=== PATIENT | male | born 1975 | race Caucasian/White ===

== ENCOUNTER 2018-07-01 12:23 | Emergency (ER) | payer OTHER ==
[2018-07-01] MEDS ORDERED: NS 0.9% 500 ML* 500 ML IV ONE (12:38)
--- NOTE | 2018-07-01 12:54 | UC ---
Respiratory Complaint HPI - HPI Summary HPI Summary: 43-year-old male presents with onset of productive cough 3 days ago. States has progressively worsened over the last 3 days and has developed increased shortness of breath. History of asthma. States been using his rescue inhaler several times including throughout the night last night. He has had some cold sweats and shaking chills but no known fever. Also reports onset of some mild nausea today. States that earlier today he was outside and began to feel numb all over went indoors and laid down. He had opened used the bathroom to have a bowel movement and had a syncopal episode. Unsure of how long he was unconscious. Denies any head or neck pain. States mother has history of heart problems and diabetes but is unsure of details as he grew up in foster care. Patient is complaining of lightheadedness and faintness at time of exam. Denies chest pain, palpitations, abdominal pain, vomiting, or diarrhea. - History of Current Complaint Stated Complaint: RESP COMPLAINT Time Seen by Provider: 07/01/18 12:25 Hx Obtained From: Patient Onset/Duration: Gradual Onset, Lasting Days - 3 Character: Cough: Productive - White sputum Aggravating Factors: Nothing Alleviating Factors: Nothing Associated Signs And Symptoms: Positive: Dyspnea, Chills, Dizziness, Nasal Congestion. Negative: Fever, Pleuritic Chest Pain, Wheezing, Hemoptysis, Calf Pain, Calf Swelling, Edema, Sinus Discomfort - Allergies/Home Medications Allergies/Adverse Reactions: Allergies Allergy/AdvReac Type Severity Reaction Status Date / Time No Known Allergies Allergy Verified 07/01/18 12:36 Home Medications: Home Medications Albuterol Sulfate [Proventil Hfa] 1 puff PO PRN 07/01/18 [History] PMH/Surg Hx/FS Hx/Imm Hx Previously Healthy: Yes Respiratory History: Asthma - Surgical History Surgical History: None - Family History Known Family History: Positive: Cardiac Disease, Diabetes - Social History Occupation: Unemployed Lives: Alone Alcohol Use: Weekly Alcohol Amount: six pack of beer Substance Use Type: None Smoking Status (MU): Smoker, Current Status Unknown Household Exposure Type: Cigarettes Review of Systems All Other Systems Reviewed And Are Negative: Yes Constitutional: Positive: Chills. Negative: Fever Skin: Negative: Rash Respiratory: Positive: Shortness Of Breath, Cough Cardiovascular: Negative: Palpitations, Chest Pain Gastrointestinal: Positive: Nausea. Negative: Abdominal Pain, Vomiting, Diarrhea Is Patient Immunocompromised?: No Physical Exam Triage Information Reviewed: Yes Appearance: No Pain Distress, Ill-Appearing Vital Signs Reviewed: Yes Eyes: Positive: Conjunctiva Clear. Negative: Discharge ENT: Positive: Nasal congestion, Uvula midline. Negative: Pharyngeal erythema, Nasal drainage, Tonsillar swelling, Tonsillar exudate Neck: Positive: Supple, Nontender, No Lymphadenopathy Respiratory: Positive: Chest non-tender, No respiratory distress, Decreased breath sounds - Left lower lobe. Negative: Accessory muscle use, Crackles, Rhonchi, Wheezing Cardiovascular: Positive: RRR, No Murmur, Pulses Normal, Brisk Capillary Refill Abdomen Description: Positive: Nontender, No Organomegaly, Soft. Negative: Distended, Guarding Bowel Sounds: Positive: Present Neurological: Positive: Alert, Muscle Tone Normal, Fatigued Skin: Positive: Other - Pale, cool, and clammy UC Diagnostic Evaluation - EKG Cardiac Rate: Tachycardia Cardiac Rhythm: Sinus: Normal Ectopy: None ST Segment: Normal Respiratory Course/Dx - Course Course Of Treatment: 43 year old male with 3 day history of progressively worsening productive cough associated with cold sweats and shaking chills. States today was walking outside and became numb all over. Laid down for awhile and then went to bathroom and had a syncopal episode. He was hypothermic with initial temperature. Normotensive but tachycardic. Pale, cool, and clammy. Diminished left lower base without wheezes, crackles, or rhonchi. EKG sinus tachycardia. IV line established and 500 ml NS bolus was given. Suspect possible pneumonia with vasovagal episode however recommending further evaluation in emergency room at this time. Discussed case with Dr. Palomino at [facility]. Transferred via [facility]. - Differential Dx/Diagnosis Differential Diagnosis/HQI/PQRI: Asthma, Bronchitis, Influenza, Lower Resp Infection, Pulmonary Embolism, Other - Syncope, TN Provider Diagnoses: Syncope - Physician Notification/Consults Discussed Patient Care With: Jj Palomino Time Discussed With Above Provider: 13:00 Instructed by Provider To: MD Will See In ED Discharge - Sign-Out/Discharge Documenting (check all that apply): Patient Departure All imaging exams completed and their final reports reviewed: No Studies - Discharge Plan Condition: Stable Disposition: TRANS [facility] Patient Education Materials: Syncope (ED) Referrals: No Primary Care Phys,NOPCP [Primary Care Provider] - Additional Instructions: Based on your history and exam it is recommended that you be evaluated in the emergency room at this time. We will transfer you via ambulance. - Billing Disposition and Condition Condition: STABLE Disposition: Trans Higher Lvl of Care Fac
[2018-07-01 13:01] VITALS: BP 92/49
== END 2018-07-01 13:13 | disposition short-term general hospital (02) ==
LOC: UCEAST 12:23
DX: R55 Syncope and collapse (principal); R05 Cough; R68.83 Chills (without fever); R06.02 Shortness of breath; R20.0 Anesthesia of skin; R42 Dizziness and giddiness; R11.0 Nausea; J45.909 Unspecified asthma, uncomplicated; F17.200 Nicotine dependence, unspecified, uncomplicated
CPT/HCPCS: 96360; 99213; G0463

== ENCOUNTER 2019-06-29 14:50 | Emergency (ER) | payer OTHER ==
[2019-06-29 15:03] VITALS: BP 134/72
--- NOTE | 2019-06-29 15:19 | UC ---
Respiratory Complaint HPI - HPI Summary HPI Summary: 2 days of sore throat, pain with swallowing, cough, headache, diffuse body aches. No fever, nausea/vomiting. - History of Current Complaint Chief Complaint: UCRespiratory Stated Complaint: COUGH AND SINUS CONGESTION Time Seen by Provider: 06/29/19 15:08 Hx Obtained From: Patient Onset/Duration: Gradual Onset, Lasting Days, Still Present Timing: Constant Severity Initially: Moderate Severity Currently: Moderate Pain Intensity: 10 Pain Scale Used: 0-10 Numeric Character: Cough: Nonproductive Aggravating Factors: Nothing Alleviating Factors: Nothing Associated Signs And Symptoms: Positive: Chills, URI, Nasal Congestion. Negative: Dyspnea, Fever - Allergies/Home Medications Allergies/Adverse Reactions: Allergies Allergy/AdvReac Type Severity Reaction Status Date / Time No Known Allergies Allergy Verified 06/29/19 15:03 Home Medications: Home Medications Sertraline* [Zoloft*] 25 mg PO DAILY 06/29/19 [History Confirmed 06/29/19] PMH/Surg Hx/FS Hx/Imm Hx Respiratory History: Asthma - Surgical History Surgical History: None Surgery Procedure, Year, and Place: None reported - Family History Known Family History: Positive: Cardiac Disease, Hypertension - Mother , Diabetes - Social History Alcohol Use: None Alcohol Amount: recovering alcoholic Substance Use Type: None Smoking Status (MU): Current Every Day Smoker Type: Cigarettes Amount Used/How Often: 1 ppd Household Exposure Type: Cigarettes Review of Systems All Other Systems Reviewed And Are Negative: Yes Constitutional: Positive: Chills, Fatigue ENT: Positive: Sore Throat, Nasal Discharge Respiratory: Positive: Cough Cardiovascular: Positive: Negative Gastrointestinal: Positive: Negative Musculoskeletal: Positive: Arthralgia, Myalgia Neurological: Positive: Headache Physical Exam Triage Information Reviewed: Yes Appearance: No Pain Distress, Well-Nourished, Ill-Appearing - SEEMS FATIGUED Vital Signs: Initial Vital Signs Temp 98.7 F 06/29/19 14:57 Pulse 106 06/29/19 14:57 Resp 18 06/29/19 14:57 BP 134/72 06/29/19 14:57 Pulse Ox 97 06/29/19 14:57 Laboratory Tests 06/29/19 15:27 Influenza A (Rapid) Negative Influenza B (Rapid) Negative Vital Signs Reviewed: Yes Eyes: Positive: Conjunctiva Clear ENT: Positive: Hearing grossly normal, Pharyngeal erythema, Other - LEFT TM DULL , ERYTHEMATOUS. RIGHT TM NORMAL. Negative: Tonsillar exudate Neck: Positive: Supple, Nontender, No Lymphadenopathy Respiratory Exam: Normal Cardiovascular: Positive: Tachycardia Abdomen Description: Positive: Soft Musculoskeletal: Positive: No Edema Neurological: Positive: Alert Psychological: Positive: Age Appropriate Behavior Skin: Negative: Rashes Respiratory Course/Dx - Course Course Of Treatment: LIKELY VIRAL URI HOWEVER PATIENT DOES HAVE A LEFT-SIDED OTITIS MEDIA SO WILL COVER FOR THAT WITH AMOXICILLIN TWICE DAILY FOR 10 DAYS. PREDNISONE AND TESSALON FOR COUGH. HE ALREADY HAS ALBUTEROL AT HOME. FOLLOW-UP IF NOT IMPROVING WITH THIS TREATMENT. - Differential Dx/Diagnosis Provider Diagnosis: Otitis media of left ear, Upper respiratory infection Discharge ED - Sign-Out/Discharge Documenting (check all that apply): Patient Departure All imaging exams completed and their final reports reviewed: No Studies - Discharge Plan Condition: Stable Disposition: HOME Prescriptions: Amoxicillin PO (*) [Amoxicillin 500 MG CAP*] 1,000 mg PO Q12H #40 cap Benzonatate CAP* [Tessalon CAP*] 1 - 2 cap PO TID PRN #30 cap PRN Reason: Cough predniSONE TAB* [Deltasone TAB*] 50 mg PO DAILY #5 tab Patient Education Materials: Ear Infection (ED), Upper Respiratory Infection ( ED) Referrals: Nely Schroeder MD [Primary Care Provider] - If Needed Additional Instructions: YOUR RESPIRATORY SYMPTOMS ARE LIKELY VIRALLY MEDIATED AND SHOULD RESOLVE ON THEIR OWN WITH TIME HOWEVER YOU DO HAVE A LEFT-SIDED EAR INFECTION SO WE WILL GIVE YOU ANTIBIOTICS TO COVER FOR THAT. TAKE TWICE DAILY FOR THE FULL 10 DAYS. WILL TREAT WITH PREDNISONE TO HELP WITH AIRWAY INFLAMMATION AND COUGH MEDICINE. USE YOUR ALBUTEROL NEEDED. SEEK FOLLOW-UP IF YOU ARE NOT IMPROVING OVER THE NEXT 1-2 WEEKS. FLU SWAB NEGATIVE. - Billing Disposition and Condition Condition: STABLE Disposition: Home
[2019-06-29 15:39] LABS: Influenza A Molecular NEGATIVE (Negative); Influenza B Molecular NEGATIVE (Negative)
== END 2019-06-29 15:55 | disposition home or self-care (01) ==
LOC: UCEAST 14:50
DX: J06.9 Acute upper respiratory infection, unspecified (principal); H66.92 Otitis media, unspecified, left ear; J45.909 Unspecified asthma, uncomplicated; R51 Headache; M79.10 Myalgia, unspecified site; R53.83 Other fatigue; F17.210 Nicotine dependence, cigarettes, uncomplicated
CPT/HCPCS: 99212; G0463

== ENCOUNTER 2019-09-23 07:55 | Emergency (ER) | payer OTHER ==
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
[2019-09-23 08:52] LABS: Influenza A Molecular Negative (Negative); Influenza B Molecular Negative (Negative)
[2019-09-23 09:07] LABS: ABS Basophils 0.1 10^3/ul (0-0.2); ABS Eosinophils 0.1 10^3/ul (0-0.6); ABS Lymphocytes 1.5 10^3/ul (1.0-4.8); ABS Monocytes 0.7 10^3/ul (0-0.8); ABS Neutrophils 4.5 10^3/ul (1.5-7.7); Eosinophil % 1.2 %; Hematocrit 45 % (42-52); Hemoglobin 15.6 g/dL (14.0-18.0); Lymphocyte % 21.8 %; Mean Corpuscular HGB Conc 35 g/dL (31-36); Mean Corpuscular Hemoglobin 30 pg (27-31); Mean Corpuscular Volume 88 fL (80-94); Mean Platelet Volume 8.6 fL (7.4-10.4); Nucleated Red Blood Cells % 0.1; Platelet Count 297 10^3/uL (150-450); Red Blood Count 5.13 10^6 /uL (4.18-5.48); Red Cell Distribution Width 15 % (10-15); White Blood Count 6.9 10^3/uL (3.5-10.8)
[2019-09-23 09:25] LABS: Albumin 4.6 g/dL (3.2-5.2); Albumin/Globulin Ratio 1.6 (1-3); BUN/Creatinine Ratio 21.4 (8-20); C Reactive Protein 9.42 mg/L (<8.01); Calcium 9.3 mg/dL (8.6-10.3); EGFR African American 148.2 (>60); EGFR Non-African American 122.5 (>60); Globulin 2.9 g/dL (2-4); Total Bilirubin 0.9 mg/dL (0.2-1.0); Total Protein 7.5 g/dL (6.4-8.9)
[2019-09-23 09:55] LABS: HIV 4th Generation Nonreactive (Nonreactive)
[2019-09-23 12:34] VITALS: BP 124/74
== END 2019-09-23 11:00 | disposition home or self-care (01) ==
LOC: ED 07:55
DX: J40 Bronchitis, not specified as acute or chronic (principal); R10.9 Unspecified abdominal pain; M54.5 Low back pain; F17.210 Nicotine dependence, cigarettes, uncomplicated; R09.81 Nasal congestion; R07.81 Pleurodynia; Z79.899 Other long term (current) drug therapy
CPT/HCPCS: 36415; 71046; 80053; 84484; 85025; 86140; 87389; 93005; 99283

== ENCOUNTER 2019-09-27 09:25 | Emergency (ER) | payer OTHER ==
[~2019-09-27 09:25] MED LIST: Lidocaine PATCH 5%* 1 PATCH TRANSDERM SCH
[2019-09-27] MEDS ORDERED: oxyCODONE/Acetamin 5/325 MG* TAB PO ONE (10:06)
--- NOTE | 2019-09-27 10:11 | ED ---
HPI Chest Pain - HPI Summary HPI Summary: The patient is a 44 y/o M presenting to [facility] accompanied by with a cc of worsening left lateral rib pain since this morning. He reports that he was here yesterday and was diagnosed with bronchitis, as he has been suffering from a productive cough. Today, his symptoms worsened when he was excessively coughing and felt a snap in the lateral left ribs. The aching pain is rated 10/10 in severity, and is aggravated with deep breathing, movement, and coughing. No alleviating symptoms. He denies any fevers, SOB, or abdominal pain. PMHx: asthma , anxiety, depression, chronic back pain. Heavy current smoker, no EtOH, no substance use. Medications reviewed. Allergies noted. - History of Current Complaint Chief Complaint: EDChestWallPain Time Seen by Provider: 09/27/19 09:55 Hx Obtained From: Patient Onset/Duration: Started Hours Ago, Still Present Timing: Constant Initial Severity: Severe Current Severity: Severe Pain Intensity: 10 Pain Scale Used: 0-10 Numeric Chest Pain Location: Left Lateral Chest Pain Radiates: No Character: Dull/Aching Aggravating Factor(s): Movement, Deep Breaths, Other: - cough Alleviating Factor(s): Nothing Associated Signs and Symptoms: Positive: Productive Cough, Other: - left lateral rib pain. Negative: Shortness of Breath, Fever, Abdominal Pain - Allergy/Home Medications Allergies/Adverse Reactions: Allergies Allergy/AdvReac Type Severity Reaction Status Date / Time No Known Allergies Allergy Verified 09/23/19 08:06 PMH/Surg Hx/FS Hx/Imm Hx Endocrine/Hematology History: Denies: Hx Diabetes Cardiovascular History: Denies: Hx Hypertension Respiratory History: Reports: Hx Asthma Musculoskeletal History: Reports: Hx Back Problems Sensory History: Denies: Hx Legally Blind, Hx Deafness Opthamlomology History: Denies: Hx Legally Blind Psychiatric History: Denies: Hx Anxiety, Hx Depression - Cancer History Cancer Type, Location and Year: none - Surgical History Surgical History: None Surgery Procedure, Year, and Place: None reported - Immunization History Date of Tetanus Vaccine: 2016 Infectious Disease History: No Infectious Disease History: Denies: Traveled Outside the [place] in Last 30 Days - Family History Known Family History: Positive: Cardiac Disease, Hypertension - Mother , Diabetes - Social History Alcohol Use: None Alcohol Amount: recovering alcoholic Hx Substance Use: No Substance Use Type: Reports: None Hx Tobacco Use: Yes Smoking Status (MU): Heavy Every Day Tobacco Smoker Type: Cigarettes Amount Used/How Often: 1 ppd Review of Systems Negative: Fever Positive: Chest Pain - left lateral Positive: Cough - pro. Negative: Shortness Of Breath Negative: Abdominal Pain All Other Systems Reviewed And Are Negative: Yes Physical Exam - Summary Physical Exam Summary: Constitutional: Well-developed, Well-nourished, Alert. (+) Mild distress Skin: Warm, Dry HENT: Normocephalic; Atraumatic Eyes: Conjunctiva normal Neck: Musculoskeletal ROM normal neck. (-) JVD, (-) Stridor, (-) Nuchal rigidity Cardio: Rhythm regular, rate normal, Heart sounds normal; Intact distal pulses; Radial pulses are 2+ and symmetric. (-) Murmur Pulmonary/Chest wall: Left lateral lower rib tenderness. Effort normal. (-) Respiratory distress, (-) Wheezes, (-) Rales Abd: Soft, (-) tenderness, (-) Distension, (-) Guarding, (-) Rebound Musculoskeletal: (-) Edema Lymph: (-) Cervical adenopathy Neuro: Alert, Oriented x3 Psych: Mood and affect Normal Triage Information Reviewed: Yes Vital Signs On Initial Exam: Initial Vitals Temp Pulse Resp BP Pulse Ox 97.8 F 107 20 99/71 97 09/27/19 09:38 09/27/19 09:38 09/27/19 09:38 09/27/19 09:38 09/27/19 09:38 Vital Signs Reviewed: Yes Procedures - Sedation Patient Received Moderate/Deep Sedation with Procedure: No Diagnostics - Vital Signs Vital Signs Temp Pulse Resp BP Pulse Ox 09/27/19 09:38 97.8 F 107 20 99/71 97 - Laboratory Lab Statement: Any lab studies that have been ordered have been reviewed, and results considered in the medical decision making process. - Radiology CXR Radiology Interpretation Completed By: Radiologist Summary of Radiographic Findings: Impression: No active cardiopulmonary disease. ED physician has reviewed this report. Re-Evaluation - Re-Evaluation First Eval Re-Evaluation Time: 10:55 Change: Improved Comment: Pain is improved with medications. Discussed results and plan for d/c. Patient would like UA sent prior to d/c. Second Eval Re-Evaluation Time: 11:25 Comment: UA is negative, patient safe for d/c, results discussed Chest Pain Course/Dx - Course Course Of Treatment: 44 y/o male p/w L sided rib pain aggravated by coughing. No trauma. Exam with tenderness left rib. Patient given pain control, lidocaine patch. Chest x-ray without any abnormality's. Suspect patient either has musculoskeletal strain from coughing or occult fracture not able to be visualized. Patient satting well on room air. Patient also is concerned about dark urine, urinalysis negative. Patient be discharged home - Diagnoses Provider Diagnoses: Cough, Rib pain on left side Discharge ED - Sign-Out/Discharge Documenting (check all that apply): Patient Departure - Patient will be discharged home. - Discharge Plan Condition: Stable Disposition: HOME Prescriptions: Cyclobenzaprine TAB* [Flexeril 10 MG TAB*] 10 mg PO TID PRN 4 Days #12 tab PRN Reason: Pain - Moderate Ibuprofen TAB* [Motrin TAB* 800 MG] 800 mg PO TID PRN 10 Days #30 tab PRN Reason: Pain - Moderate oxyCODONE/Acetamin 5/325 MG* [Percocet 5/325 TAB*] 1 tab PO Q6H PRN 3 Days #12 tab MDD 4 PRN Reason: Pain Patient Education Materials: Acute Cough (ED), Chest Wall Pain (ED) Forms: *Gen. Provider Communication Referrals: Nely Schroeder MD [Primary Care Provider] - 3 Days Additional Instructions: You were seen in the emergency department for rib pain. Your XRay did not show any obvious broken ribs but we cannot always see this. Please take motrin for pain, percocet for severe pain. You can buy over the counter lidocaine patches. Please follow up with your primary care doctor in the next 2-3 days and return to the emergency department for worsening pain, trouble breathing or concerning symptoms. It was a pleasure taking care of you today. - Billing Disposition and Condition Condition: STABLE Disposition: Home - Attestation Statements Document Initiated by Scribe: Yes Documenting Scribe: Lena Hernandez Provider For Whom Martinez is Documenting (Include Credential): Dr. Raji Valerio MD Scribe Attestation: I, Lena Hernandez, scribed for Dr. Raji Valerio MD on 09/27/19 at 1149. Scribe Documentation Reviewed: Yes Provider Attestation: The documentation as recorded by the scribe, Lena Hernandez accurately reflects the service I personally performed and the decisions made by me, Dr. Raji Valerio MD Status of Scribe Document: Viewed
[2019-09-27 11:20] LABS: Urine Appearance Clear; Urine Bilirubin Negative (Negative); Urine Blood Negative (Negative); Urine Color Amber; Urine Glucose Negative (Negative); Urine Ketones Negative (Negative); Urine Nitrite Negative (Negative); Urine Protein Negative (Negative); Urine Specific Gravity 1.029 (1.010-1.030); Urine Urobilinogen Negative (Negative)
[2019-09-27 11:32] VITALS: BP 111/90
[2019-09-27] MEDS ORDERED: Lidocaine Patch REMOVE* 1 NOTE MISC SCH ×2 (21:00)
== END 2019-09-27 11:30 | disposition home or self-care (01) ==
LOC: ED 09:25
DX: R07.81 Pleurodynia (principal); R05 Cough; J45.909 Unspecified asthma, uncomplicated; F17.210 Nicotine dependence, cigarettes, uncomplicated
CPT/HCPCS: 71046; 81003; 99282; A9270-GY

== ENCOUNTER 2019-10-05 16:12 | Emergency (ER) | payer MEDICAID, OTHER ==
--- NOTE | 2019-10-05 18:15 | UC ---
General HPI - HPI Summary HPI Summary: PATIENT COMPLAINING OF CHEST CONGESTION AND COUGH FOR ABOUT A MONTH. HE WAS SEEN IN THE [facility] 1 WEEK AGO ON 09/27/2019 AFTER A COUGHING FIT WHEN HE FELT SOMETHING SNAP IN HIS LEFT RIB CAGE. CHEST X-RAY WAS UNREMARKABLE. PATIENT WAS GIVEN PERCOCET WHICH HE SAID KNOCKED HIM OUT BUT DIDN'T HELP MUCH WITH HIS DISCOMFORT. HE COMES IN TODAY COMPLAINING OF WORSENING PAIN NOW ALSO IN HIS RIGHT RIB CAGE AND PERSISTENT HARSH COUGH. NO FEVER. WAS SEEN AT [facility] TODAY AND WAS ADVISED TO BE EVALUATED FOR POSSIBLE RIB FRACTURE. - History of Current Complaint Chief Complaint: UCGeneralIllness Stated Complaint: RIB INJURY Time Seen by Provider: 10/05/19 18:11 Hx Obtained From: Patient, Family/J2Ee Developer Onset/Duration: Sudden Onset, Lasting Days, Still Present Timing: Constant Onset Severity: Moderate Current Severity: Moderate Pain Intensity: 10 Associated Signs & Symptoms: Positive: Cough. Negative: Fever, Hemoptysis, Nausea, Vomiting - Allergy/Home Medications Allergies/Adverse Reactions: Allergies Allergy/AdvReac Type Severity Reaction Status Date / Time No Known Allergies Allergy Verified 10/05/19 17:21 Home Medications: Home Medications Albuterol Sulfate [Proventil Hfa] 1 puff PO DAILY 07/01/18 [History Confirmed ] Sertraline* [Zoloft*] 25 mg PO DAILY 06/29/19 [History Confirmed 10/05/19] Prilosec 20 mg PO DAILY 09/23/19 [History Confirmed 10/05/19] Ibuprofen TAB* [Motrin TAB* 800 MG] 800 mg PO TID PRN 10 Days #30 tab 09/27/19 [ Rx Confirmed 10/05/19] Albuterol HFA INHALER* [Ventolin HFA Inhaler*] 2 puff INH Q4H PRN #1 mdi [Rx] Codeine Phosphate/Guaifenesin [Codeine-Guaifen 10-100 mg/5 ml] 5 - 10 ml PO Q6H PRN #150 ml MDD 40ML 10/05/19 [Rx] Doxycycline Monohydrate 1 cap PO BID #20 cap 10/05/19 [Rx] predniSONE 50 mg TAB [Deltasone 50 mg TAB] 50 mg PO DAILY #5 tab 10/05/19 [Rx] PMH/Surg Hx/FS Hx/Imm Hx Respiratory History: Asthma - Surgical History Surgical History: None Surgery Procedure, Year, and Place: None reported - Family History Known Family History: Positive: Cardiac Disease, Hypertension - Mother , Diabetes - Social History Alcohol Use: None Alcohol Amount: recovering alcoholic Substance Use Type: None Smoking Status (MU): Heavy Every Day Tobacco Smoker Type: Cigarettes Amount Used/How Often: 1 ppd Household Exposure Type: Cigarettes Review of Systems All Other Systems Reviewed And Are Negative: Yes Constitutional: Positive: Fatigue ENT: Positive: Negative Respiratory: Positive: Cough Cardiovascular: Positive: Negative Gastrointestinal: Positive: Negative Physical Exam Triage Information Reviewed: Yes Appearance: Well-Appearing, No Pain Distress, Well-Nourished Vital Signs: Initial Vital Signs Pulse 104 10/05/19 17:13 Resp 22 10/05/19 17:13 Pulse Ox 98 10/05/19 17:13 Vital Signs Reviewed: Yes Eyes: Positive: Conjunctiva Clear ENT: Positive: Hearing grossly normal, Pharynx normal, TMs normal Neck: Positive: Supple, Nontender, No Lymphadenopathy Respiratory: Positive: No respiratory distress, No accessory muscle use, Crackles - MILD IN BASES, Other: - BREATH SOUNDS COARSE Cardiovascular Exam: Normal Abdomen Description: Positive: Soft Musculoskeletal: Positive: No Edema, Other: - TTP BILATERAL RIB CAGE MID AXILLARY LINE Neurological: Positive: Alert Psychological: Positive: Age Appropriate Behavior Skin: Negative: Rashes Diagnostics - Radiology BILATERAL RIB XRAYS Radiology Interpretation Completed By: Radiologist Summary of Radiographic Findings: 1. No evidence for pneumonia. 2. No evidence for rib fracture. Course/Dx - Course Course Of Treatment: RIB X-RAYS TODAY UNREMARKABLE. I SUSPECT PATIENT HAS STRAINED HIS INTERCOSTAL MUSCLES DUE TO PERSISTENT HARSH COUGH. HE STATES TESSALON PERLES WERE NOT HELPFUL AND IS REQUESTING SOMETHING STRONGER FOR COUGH. HE REPORTS THAT HE IS IN [facility] FOR [facility] AND [facility] BUT STATES HE HAS BEEN SOBER FOR OVER 5 YEARS. WAS RECENTLY PRESCRIBED OXYCODONE FOR HIS RIB CAGE PAIN WHICH HE SAYS DID NOT HELP. WILL GIVE COUGH MEDICINE WITH CODEINE TODAY. LONG DISCUSSION HAD WITH PATIENT ABOUT ADDICTIVE NATURE OF THIS NARCOTIC COUGH MEDICATION. HE IS TO USE IT SPARINGLY. PATIENT HAS REGULAR FOLLOW-UP AT [facility] AND STATES HE HAS NOT HAD A PROBLEM WITH OPIOIDS. PREDNISONE TO HELP WITH AIRWAY INFLAMMATION. ALBUTEROL INHALER REFILLED. GIVEN THAT HE HAS BEEN STAYING AT A LONG-TERM AND THEREFORE LIKELY HAS HAD EXPOSURE TO MULTIPLE RESPIRATORY ILLNESSES IN ADDITION TO HIS COARSE BREATH SOUNDS AND LONG-STANDING SYMPTOMS WILL GO AHEAD AND COVER WITH AN ANTIBIOTIC. DOXYCYCLINE TWICE DAILY FOR 10 DAYS. PATIENT WILL GO TO THE ER WITHOUT FAIL IF HIS SYMPTOMS DO NOT IMPROVE WITH THE ABOVE MANAGEMENT. - Diagnoses Provider Diagnosis: Acute bronchitis, Intercostal muscle strain Discharge ED - Sign-Out/Discharge Documenting (check all that apply): Patient Departure All imaging exams completed and their final reports reviewed: Yes - Discharge Plan Condition: Stable Disposition: HOME Prescriptions: Albuterol HFA INHALER* [Ventolin HFA Inhaler*] 2 puff INH Q4H PRN #1 mdi PRN Reason: Shortness Of Breath Codeine Phosphate/Guaifenesin [Codeine-Guaifen 10-100 mg/5 ml] 5 - 10 ml PO Q6H PRN #150 ml MDD 40ML PRN Reason: Cough Doxycycline Monohydrate 1 cap PO BID #20 cap predniSONE 50 mg TAB [Deltasone 50 mg TAB] 50 mg PO DAILY #5 tab Patient Education Materials: Muscle Strain (ED), Acute Bronchitis (ED) Forms: *Gen. Provider Communication Referrals: Nely Schroeder MD [Primary Care Provider] - Additional Instructions: X-RAYS TODAY WITHOUT PNEUMONIA OR RIB FRACTURES. PRESENTATION AND EXAM CONSISTENT WITH AIRWAY INFLAMMATION. GIVEN YOUR LONG-STANDING SYMPTOMS AND THE FACT THAT YOU HAVE BEEN STAYING IN A LONG-TERM I'M CONCERNED THAT YOU ARE AT RISK FOR DEVELOPING A BACTERIAL INFECTION. TAKE THE ANTIBIOTICS TWICE DAILY FOR THE FULL 10 DAYS. PREDNISONE AND ALBUTEROL WILL HELP WITH AIRWAY INFLAMMATION. YOU HAVE ALSO BEEN PRESCRIBED A COUGH MEDICINE WITH CODEINE IN IT TO HELP WITH YOUR PERSISTENT COUGH. BE AWARE THAT CODEINE IS A NARCOTIC AND MUST BE USED WITH CAUTION AND SPARINGLY. KEEP IT IN A SAFE PLACE AND OUT OF REACH OF CHILDREN AND ANIMALS. IF YOU DO NOT IMPROVE WITH THE ABOVE TREATMENT SEEK REEVALUATION IN THE EMERGENCY ROOM. - Billing Disposition and Condition Condition: STABLE Disposition: Home
== END 2019-10-05 18:55 | disposition home or self-care (01) ==
LOC: UCEAST 16:12
DX: J20.9 Acute bronchitis, unspecified (principal); S29.011A Strain of muscle and tendon of front wall of thorax, initial encounter; J45.909 Unspecified asthma, uncomplicated; X58.XXXA Exposure to other specified factors, initial encounter; Y92.9 Unspecified place or not applicable; F17.210 Nicotine dependence, cigarettes, uncomplicated; Z79.52 Long term (current) use of systemic steroids
CPT/HCPCS: 71111; 99211; G0463

== ENCOUNTER 2019-11-01 11:56 | Emergency (ER) | payer OTHER ==
[2019-11-01 12:25] VITALS: BP 121/81
--- NOTE | 2019-11-01 12:53 | UC ---
Telehealth [facility] Endocrine/Hematology History: Denies: Hx Diabetes Cardiovascular History: Denies: Hx Hypertension Respiratory History: Reports: Hx Asthma Musculoskeletal History: Reports: Hx Back Problems Sensory History: Denies: Hx Legally Blind, Hx Deafness Opthamlomology History: Denies: Hx Legally Blind Psychiatric History: Denies: Hx Anxiety, Hx Depression - Cancer History Cancer Type, Location and Year: none - Surgical History Surgery Procedure, Year, and Place: None reported - Immunization History Date of Tetanus Vaccine: 2016 Infectious Disease History: No - Family History Known Family History: Positive: Cardiac Disease, Hypertension - Mother , Diabetes - Social History Alcohol Use: None Alcohol Amount: recovering alcoholic Hx Substance Use: No Substance Use Type: Reports: None Hx Tobacco Use: Yes Smoking Status (MU): Heavy Every Day Tobacco Smoker Type: Cigarettes Amount Used/How Often: 1 ppd
--- NOTE | 2019-11-01 13:01 | UC ---
Cardiac HPI - HPI Summary HPI Summary: 44-year-old male comes in with a chief complaint of right-sided chest pain. Patient was ill and was coughing excessively and had sudden onset of right- sided chest pain on September 27, 2019. Also been having some left-sided splinting pain. He had chest x-ray here on October 05, 2019 which did not see any rib fracture or pneumonia. Patient initially was treated with oxycodone with the patient felt did not help with the pain and he did not like the way it made him feel. Since then he's been treated with Tylenol and ibuprofen and Flexeril which helps. Pain has been decreasing over time but he still has significant pain when he takes a deep breath raises his right arm and also with ambulation. Fevers no chills no shortness of breath. No rash. - History of Current Complaint Chief Complaint: UCGeneralIllness Stated Complaint: RECHECK OF RIB PAIN Time Seen by Provider: 11/01/19 12:35 Pain Intensity: 8 - Allergy/Home Medications Allergies/Adverse Reactions: Allergies Allergy/AdvReac Type Severity Reaction Status Date / Time No Known Allergies Allergy Verified 11/01/19 12:10 Home Medications: Home Medications Prilosec 20 mg PO DAILY PRN 09/23/19 [History Confirmed 11/01/19] Ibuprofen TAB* [Motrin TAB* 800 MG] 800 mg PO TID PRN 10 Days #30 tab 09/27/19 [ Rx Confirmed 11/01/19] Albuterol HFA INHALER* [Ventolin HFA Inhaler*] 2 puff INH Q4H PRN #1 mdi [Rx Confirmed 11/01/19] Acetaminophen TAB* [Tylenol TAB*] 650 mg PO Q4H PRN 11/01/19 [History Confirmed 11/01/19] Cyclobenzaprine TAB* [Flexeril 10 MG TAB*] 10 mg PO BID PRN 11/01/19 [History Confirmed 11/01/19] PMH/Surg Hx/FS Hx/Imm Hx Previously Healthy: Yes - Surgical History Surgical History: None Surgery Procedure, Year, and Place: None reported - Family History Known Family History: Positive: Cardiac Disease, Hypertension - Mother , Diabetes - Social History Alcohol Use: None Alcohol Amount: recovering alcoholic Substance Use Type: None Smoking Status (MU): Heavy Every Day Tobacco Smoker Type: Cigarettes Amount Used/How Often: 1 ppd Household Exposure Type: Cigarettes Review of Systems All Other Systems Reviewed And Are Negative: Yes Constitutional: Positive: Negative Skin: Positive: Negative Eyes: Positive: Negative ENT: Positive: Negative Respiratory: Positive: Other - see hpi Cardiovascular: Positive: Chest Pain - see hpi Gastrointestinal: Positive: Negative Motor: Positive: Negative Neurovascular: Positive: Negative Musculoskeletal: Positive: Other: - see hpi Neurological/Mental Status: Positive: Negative Psychological: Positive: Negative Is Patient Immunocompromised?: No Physical Exam Triage Information Reviewed: Yes Appearance: Well-Appearing, Well-Nourished, Pain Distress - mild with exam rt chest Vital Signs: Initial Vital Signs Temp 97.5 F 11/01/19 12:14 Pulse 91 11/01/19 12:14 Resp 18 11/01/19 12:14 BP 121/81 11/01/19 12:14 Pulse Ox 99 11/01/19 12:14 Vital Signs Reviewed: Yes Eye Exam: Normal Eyes: Positive: Conjunctiva Clear Neck: Positive: Supple Respiratory: Positive: Lungs clear, Normal breath sounds, No respiratory distress, Other: - Tender to palpation right lateral ribs there is no rash. Cardiovascular: Positive: RRR Abdomen Description: Positive: Nontender, Soft Musculoskeletal: Positive: Strength Intact Neurological: Positive: Alert Psychological: Positive: Age Appropriate Behavior Skin Exam: Normal - Assessment/Plan Course Of Treatment: Patient was given an incentive spirometer and its use was demonstrated by nursing here in clinic. Patient will continue to use his present medications of ibuprofen and Tylenol and Flexeril. He is to get reevaluated if worse or any questions or concerns. - Clinical Impression Provider Diagnosis: Rib pain on right side Discharge ED - Sign-Out/Discharge Documenting (check all that apply): Patient Departure All imaging exams completed and their final reports reviewed: No Studies - Discharge Plan Condition: Stable Disposition: HOME Patient Education Materials: Rib Fracture (ED) Forms: *Work Release Referrals: Nely Schroeder MD [Primary Care Provider] - Additional Instructions: FOLLOW UP WITH YOUR DOCTOR IF NOT COMPLETELY IMPROVED. GET REEVALUATED IF NOT IMPROVED OR WORSE OR ANY QUESTIONS OR CONCERNS. - Billing Disposition and Condition Condition: STABLE Disposition: Home
== END 2019-11-01 13:18 | disposition home or self-care (01) ==
LOC: UCEAST 11:56
DX: R07.81 Pleurodynia (principal); F17.210 Nicotine dependence, cigarettes, uncomplicated
CPT/HCPCS: 99211; G0463